=== PATIENT | female | born 1970 | race American Indian/Alaskan Native ===

== ENCOUNTER 2018-07-27 20:13 | Emergency (ER) | payer OTHER ==
[2018-07-27 20:27] VITALS: BP 143/92
--- NOTE | 2018-07-27 21:58 | XRay Report ---
PROCEDURE: RIGHT FINGER (S) TECHNIQUE: RIGHT fourth finger radiographs, including AP, lateral, and oblique views. CPT 37628 HISTORY: Trauma COMPARISONS: None . FINDINGS: Fracture (s) and/or Dislocation(s): None . Alignment: Normal . Joint space(s): Normal . Soft tissues: There is soft tissue swelling of the fourth digit. . Bone mineralization: Normal . Foreign bodies: None . IMPRESSION: There is no fracture or malalignment. There is soft tissue swelling of the fourth digit. . This document is electronically signed by Tye Alexander MD., July 27 2018 09:56:40 PM ET
--- NOTE | 2018-07-27 22:43 | Emergency Department Report ---
ED Upper Extremity Inj HPI - General Chief Complaint: Extremity Injury, Upper Stated Complaint: FRIGHT FINGER HURTS Time Seen by Provider: 07/27/18 22:35 Source: patient Mode of arrival: Ambulatory Limitations: No Limitations - History of Present Illness Initial Comments: Pt is a 48 yo female who presents to the ED with right ring finger pain that began today. She states she was playing kickball and ran into two other people and bent her right ring finger back. She has associated pain and swelling. She denies any previous injury. The patient states she has been able to move all digits. She denies any numbness or weakness. She has not tried anything to alleviate the pain. Complaint: Injury to:: right, finger (ring finger) -: This evening Other Injuries: none Handedness: right Place: outdoors Severity scale (0 -10): 4 Worsens With: movement of extremity Context: sports-related injury Associated Symptoms: denies other symptoms - Related Data Previous Rx's Medication Instructions Recorded Last Taken Type Ibuprofen 800 mg PO Q6HR #20 tablet 07/27/18 Unknown Rx Allergies Allergy/AdvReac Type Severity Reaction Status Date / Time No Known Allergies Allergy Unverified 07/27/18 20:15 ED Review of Systems ROS: Stated complaint: FRIGHT FINGER HURTS Other details as noted in HPI Comment: All other systems reviewed and negative ED Past Medical Hx - Social History Smoking Status: Never Smoker Substance Use Type: Alcohol - Medications Home Medications: Home Medications Medication Instructions Recorded Confirmed Last Taken Type Ibuprofen 800 mg PO Q6HR #20 tablet 07/27/18 Unknown Rx ED Physical Exam - General Limitations: No Limitations General appearance: alert, in no apparent distress - Head Head exam: Present: atraumatic, normocephalic - Eye Eye exam: Present: normal appearance - ENT ENT exam: Present: mucous membranes moist - Extremities Exam Extremities exam: Present: other (edema present to the right ring finger, FROM with pain upon flexion of the PIP, neurovascularly intact, no TTP of any other digits or wrist) - Neurological Exam Neurological exam: Present: alert, oriented X3 - Psychiatric Psychiatric exam: Present: normal affect, normal mood - Skin Skin exam: Present: warm, dry, intact ED Course Vital Signs 07/27/18 20:25 Temperature 98.5 F Pulse Rate 93 H Respiratory 16 Rate Blood Pressure 143/92 O2 Sat by Pulse 97 Oximetry ED Medical Decision Making - Radiology Data Radiology results: report reviewed, image reviewed Right 4th finger XR: no acute process - Medical Decision Making Pt presents with right ring finger pain and edema after running into two other people during kick ball. FROM of the right ring finger with discomfort upon flexion of the PIP. XR of the right ring finger with no abnormality. Will give pt ibuprofen and give referral to [facility] if continue to experience pain. Advised pt she can pam tape it to the next digit. Follow up with PCP in the next 2-3 days. Critical care attestation.: If time is entered above; I have spent that time in minutes in the direct care of this critically ill patient, excluding procedure time. ED Disposition Clinical Impression: Finger pain, right Sprain of right ring finger Qualifiers: Encounter type: initial encounter Sprain of finger site: unspecified site Qualified Code(s): S63.614A - Unspecified sprain of right ring finger, initial encounter Disposition: TO HOME OR SELFCARE Is pt being admited?: No Does the pt Need Aspirin: No Condition: Stable Instructions: Finger Sprain (ED) Additional Instructions: Follow up with primary care doctor in the next 2-3 days. Use ice and ibuprofen. Can pam tape to the next finger if having discomfort. Follow up with orthopedic if continue to have pain. Prescriptions: Ibuprofen 800 mg PO Q6HR #20 tablet Referrals: HEIDI ZHAO MD [Primary Care Provider] - 3-5 Days HERBER STERN MD [Staff Physician] - 3-5 Days Time of Disposition: 22:42 Print Language: ARMENIAN
== END 2018-07-27 22:54 | disposition home or self-care (01) ==
LOC: ED 20:13
DX: S63.614A Unspecified sprain of right ring finger, initial encounter (principal); Y93.6A Activity, physical games generally associated with school recess, summer camp and children; Y93.02 Activity, running; Y99.8 Other external cause status; Y92.89 Other specified places as the place of occurrence of the external cause
CPT/HCPCS: 99283